=== PATIENT | male | born 1955 | race Caucasian/White ===

== ENCOUNTER 2018-02-13 19:55 | Inpatient (IN) | payer OTHER ==
[2018-02-13] MEDS ORDERED: HYDROCODONE/APAP (5/325) TAB PO (23:30)
[2018-02-13] MEDS ORDERED: ACETAMINOPHEN 325 MG TAB PO (23:30)
[2018-02-13] MEDS ORDERED: NACL 0.9% 3 ML SYG IV (23:30)
[2018-02-13] MEDS ORDERED: ONDANSETRON 4 MG INJ IV (23:30)
[2018-02-14 00:44] LABS: ADD MAN DIFF? NO
[2018-02-14 00:47] LABS: WHITE BLOOD COUNT 7.3 10^3/ul (4.8-10.8)
[2018-02-14 00:48] LABS: BASOPHILS % 0.4 % (0.0-2.0); EOSINOPHILS % 0.4 % (0.0-7.0); HEMATOCRIT 35.1 % (42.0-52.0); HEMOGLOBIN 12.3 g/dl (14.0-18.0); LYMPHOCYTES # 1.9 10^3/ul (0.8-2.9); LYMPHOCYTES % 25.5 % (15.0-51.0); MEAN CORPUSCULAR HEMOGLOBIN 28.9 pg (29.0-33.0); MEAN CORPUSCULAR VOLUME 82.6 fl (82.0-101.0); MEAN PLATELET VOLUME 11.2 fl (7.4-10.4); MONOCYTE # 0.8 10^3/ul (0.3-0.9); MONOCYTES % 10.3 % (0.0-11.0); NEUTROPHIL # 4.6 10^3/ul (1.6-7.5); PLATELET COUNT 253 10^3/UL (140-415); RED BLOOD COUNT 4.25 10^6/ul (4.70-6.10); RED CELL DISTRIBUTION WIDTH 15.4 % (11.5-14.5)
[2018-02-14 00:56] LABS: HEMOGLOBIN A1C 10.1 % (0-5.9)
[2018-02-14 01:06] LABS: ALANINE AMINOTRANSFERASE 94 IU/L (13-69); ALBUMIN 3.7 g/dl (3.3-4.9); ALBUMIN/GLOBULIN RATIO 1.23; ALKALINE PHOSPHATASE 249 IU/L (42-121); ANION GAP 14 (5-13); ASPARTATE AMINO TRANSFERASE 59 IU/L (15-46); BILIRUBIN,INDIRECT 1.7 mg/dl (0-1.1); BILIRUBIN,TOTAL 9.4 mg/dl (0.2-1.3); BLOOD UREA NITROGEN 12 mg/dl (7-20); CALCIUM 9.1 mg/dl (8.4-10.2); CARBON DIOXIDE 24 mmol/L (21-31); CHLORIDE 99 mmol/L (97-110); CREATININE 0.61 mg/dl (0.61-1.24); Estimated GFR > 60 mL/min (>60); GLUCOSE 246 mg/dl (70-220); SODIUM 137 mmol/L (135-144); TOTAL PROTEIN 6.7 g/dl (6.1-8.1)
[2018-02-14] MEDS ORDERED: GLUCAGON 1 MG INJ IM (02:30)
[2018-02-14] MEDS ORDERED: DEXTROSE 50% 50 ML SYRINGE IV ×2 (02:30)
[2018-02-14] MEDS ORDERED: GLUCOSE GEL 15 GRAM TUBE BUCCAL (02:30)
[2018-02-14] MEDS ORDERED: GLUCOSE GEL 15 GRAM TUBE PO ×2 (02:30)
[2018-02-14] MEDS: PANTOPRAZOLE (EC) 40 MG TAB PO (06:00)
[2018-02-14] MEDS ORDERED: SEVOFLURANE 15 MIN ×2 (07:00)
[2018-02-14] MEDS: DIPHENHYDRAMINE 50 MG INJ IV (07:01)
[2018-02-14] MEDS ORDERED: INSULIN ASPART [NOVOLOG] 3 ML PEN SC (08:00)
[2018-02-14] MEDS: DEXTROSE 5%-0.45% NACL 1,000 ML IV (08:42)
[2018-02-14] MEDS: BENAZEPRIL 10 MG TAB PO (08:45)
[2018-02-14] MEDS: INSULIN ASPART [NOVOLOG] 3 ML PEN SC ×7 (08:56→20:35)
[2018-02-14] MEDS ORDERED: LINAGLIPTIN 5 MG TABLET PO (09:00)
[2018-02-14] MEDS ORDERED: metFORMIN 850 MG TAB PO (09:00)
[2018-02-14 09:10] LABS: INR 0.98; PROTIME 13.1 Sec (11.9-14.9)
[2018-02-14 09:11] LABS: PARTIAL THROMBOPLASTIN TIME 25.7 Sec (23.0-35.0)
[2018-02-14] MEDS: URSODIOL 300 MG CAP PO ×3 (10:14→20:05)
[2018-02-14] MEDS: INDOMETHACIN 50 MG SUPP PR (15:40)
[2018-02-14] MEDS ORDERED: ROCURONIUM 50 MG INJ (16:22)
[2018-02-14] MEDS ORDERED: MIDAZOLAM 1 MG/ML 2 ML INJ (16:22)
[2018-02-14] MEDS ORDERED: FENTAnyl 50 MCG/ML VIAL (16:22)
[2018-02-14] MEDS ORDERED: CEFAZOLIN 1 GM INJ (16:22)
[2018-02-14] MEDS ORDERED: PROPOFOL 20 ML (16:22)
[2018-02-14] MEDS ORDERED: METOCLOPRAMIDE 10 MG INJ IV (16:30)
[2018-02-14] MEDS ORDERED: HYDROmorphONE 1 MG/5 ML IV SYRINGE IV ×3 (16:30)
[2018-02-14] MEDS ORDERED: ONDANSETRON 4 MG INJ IV (16:30)
[2018-02-14] MEDS ORDERED: hydrALAzine 20 MG INJ IV ×2 (16:30→21:00)
[2018-02-14] MEDS ORDERED: FENTAnyl 50 MCG/ML VIAL IV ×3 (16:30)
[2018-02-14] MEDS ORDERED: EPHEDrine SULFATE 50 MG/5 ML SYG IV (16:30)
[2018-02-14] MEDS ORDERED: LABETALOL HCL 20MG INJ IV (16:30)
[2018-02-14] MEDS ORDERED: PHENYLephrine (100 MCG/ML) 5ML SYG (16:44)
[2018-02-14] MEDS ORDERED: METOCLOPRAMIDE 10 MG INJ (17:02)
[2018-02-14] MEDS ORDERED: DEXAMETHASONE 4 MG/ML 1 ML INJ (17:02)
[2018-02-14] MEDS ORDERED: ONDANSETRON 4 MG INJ (17:02)
[2018-02-14] MEDS ORDERED: SUGAMMADEX SODIUM 200 MG/2 ML VIAL IV (18:06)
[2018-02-14 19:53] LABS: ALPHA FETOPROTEIN 2.64 IU/L (0.00-7.21)
[2018-02-14] MEDS: ATORVASTATIN 20 MG TAB PO (20:05)
[2018-02-14] MEDS: INSULIN GLARGINE [LANTus] (100 UNITS/ML) SYG SC (20:34)
[2018-02-15] MEDS ORDERED: ACCU-CHEK XX ×2 (02:00)
[2018-02-15] MEDS: INSULIN ASPART [NOVOLOG] 3 ML PEN SC ×7 (02:03→20:07)
[2018-02-15] MEDS: PANTOPRAZOLE (EC) 40 MG TAB PO (05:12)
[2018-02-15 06:58] LABS: ADD MAN DIFF? NO
[2018-02-15 07:00] LABS: WHITE BLOOD COUNT 6.9 10^3/ul (4.8-10.8)
[2018-02-15 07:00] LABS: BASOPHILS % 0.1 % (0.0-2.0); HEMATOCRIT 34.3 % (42.0-52.0); HEMOGLOBIN 12.2 g/dl (14.0-18.0); LYMPHOCYTES # 1.2 10^3/ul (0.8-2.9); LYMPHOCYTES % 17.9 % (15.0-51.0); MEAN CORPUSCULAR HEMOGLOBIN 28.9 pg (29.0-33.0); MEAN CORPUSCULAR HGB CONC 35.6 g/dl (32.0-37.0); MEAN CORPUSCULAR VOLUME 81.3 fl (82.0-101.0); MEAN PLATELET VOLUME 11.5 fl (7.4-10.4); MONOCYTE # 0.6 10^3/ul (0.3-0.9); MONOCYTES % 9.2 % (0.0-11.0); NEUTROPHILS % 72.4 % (39.0-77.0); PLATELET COUNT 285 10^3/UL (140-415); RED BLOOD COUNT 4.22 10^6/ul (4.70-6.10); RED CELL DISTRIBUTION WIDTH 15.6 % (11.5-14.5)
[2018-02-15 07:58] LABS: ALANINE AMINOTRANSFERASE 70 IU/L (13-69); ALBUMIN 3.4 g/dl (3.3-4.9); ALBUMIN/GLOBULIN RATIO 1.06; ALKALINE PHOSPHATASE 253 IU/L (42-121); ANION GAP 14 (5-13); ASPARTATE AMINO TRANSFERASE 45 IU/L (15-46); BILIRUBIN,INDIRECT 1.7 mg/dl (0-1.1); BILIRUBIN,TOTAL 10.6 mg/dl (0.2-1.3); BLOOD UREA NITROGEN 14 mg/dl (7-20); CALCIUM 9.2 mg/dl (8.4-10.2); CARBON DIOXIDE 25 mmol/L (21-31); CHLORIDE 102 mmol/L (97-110); CREATININE 0.65 mg/dl (0.61-1.24); Estimated GFR > 60 mL/min (>60); GLUCOSE 273 mg/dl (70-220); POTASSIUM 4.2 mmol/L (3.5-5.1); SODIUM 141 mmol/L (135-144); TOTAL PROTEIN 6.6 g/dl (6.1-8.1)
[2018-02-15] MEDS: URSODIOL 300 MG CAP PO ×3 (08:44→20:05)
[2018-02-15] MEDS: BENAZEPRIL 10 MG TAB PO (08:44)
[2018-02-15] MEDS: ATORVASTATIN 20 MG TAB PO (20:05)
[2018-02-15] MEDS: INSULIN GLARGINE [LANTus] (100 UNITS/ML) SYG SC (20:08)
[2018-02-16] MEDS: PANTOPRAZOLE (EC) 40 MG TAB PO (05:28)
[2018-02-16] MEDS: BENAZEPRIL 10 MG TAB PO (08:03)
[2018-02-16] MEDS: URSODIOL 300 MG CAP PO ×3 (08:04→20:52)
[2018-02-16] MEDS: INSULIN ASPART [NOVOLOG] 3 ML PEN SC ×7 (08:25→20:55)
[2018-02-16 11:46] LABS: ALANINE AMINOTRANSFERASE 60 IU/L (13-69); ALBUMIN 3.5 g/dl (3.3-4.9); ALBUMIN/GLOBULIN RATIO 0.97; ALKALINE PHOSPHATASE 276 IU/L (42-121); ANION GAP 10 (5-13); ASPARTATE AMINO TRANSFERASE 41 IU/L (15-46); BILIRUBIN,INDIRECT 1.5 mg/dl (0-1.1); BILIRUBIN,TOTAL 9.3 mg/dl (0.2-1.3); BLOOD UREA NITROGEN 13 mg/dl (7-20); CALCIUM 9.2 mg/dl (8.4-10.2); CARBON DIOXIDE 28 mmol/L (21-31); CHLORIDE 99 mmol/L (97-110); Estimated GFR > 60 mL/min (>60); GLUCOSE 291 mg/dl (70-220); POTASSIUM 4.2 mmol/L (3.5-5.1); SODIUM 137 mmol/L (135-144); TOTAL PROTEIN 7.1 g/dl (6.1-8.1)
[2018-02-16] MEDS: LINAGLIPTIN 5 MG TABLET PO (14:15)
[2018-02-16] MEDS: ATORVASTATIN 20 MG TAB PO (20:52)
[2018-02-16] MEDS: INSULIN GLARGINE [LANTus] (100 UNITS/ML) SYG SC (20:54)
[2018-02-16] MEDS: NEOMYC/POLYMYX/BACIT 30 GM OINT TOP (20:55)
[2018-02-17] MEDS: PANTOPRAZOLE (EC) 40 MG TAB PO (05:40)
[2018-02-17] MEDS: NEOMYC/POLYMYX/BACIT 30 GM OINT TOP ×2 (08:18→20:17)
[2018-02-17] MEDS: URSODIOL 300 MG CAP PO ×3 (08:18→20:17)
[2018-02-17] MEDS: LINAGLIPTIN 5 MG TABLET PO (08:18)
[2018-02-17] MEDS: BENAZEPRIL 10 MG TAB PO (08:19)
[2018-02-17] MEDS: INSULIN ASPART [NOVOLOG] 3 ML PEN SC ×7 (08:21→20:19)
[2018-02-17 15:28] LABS: ALANINE AMINOTRANSFERASE 52 IU/L (13-69); ALBUMIN 3.5 g/dl (3.3-4.9); ALBUMIN/GLOBULIN RATIO 0.92; ALKALINE PHOSPHATASE 274 IU/L (42-121); ANION GAP 11 (5-13); ASPARTATE AMINO TRANSFERASE 43 IU/L (15-46); BILIRUBIN,INDIRECT 1.3 mg/dl (0-1.1); BILIRUBIN,TOTAL 9.8 mg/dl (0.2-1.3); BLOOD UREA NITROGEN 13 mg/dl (7-20); CALCIUM 9.3 mg/dl (8.4-10.2); CARBON DIOXIDE 28 mmol/L (21-31); CHLORIDE 96 mmol/L (97-110); CREATININE 0.65 mg/dl (0.61-1.24); Estimated GFR > 60 mL/min (>60); GLUCOSE 247 mg/dl (70-220); SODIUM 135 mmol/L (135-144); TOTAL PROTEIN 7.3 g/dl (6.1-8.1)
[2018-02-17] MEDS: MAGNESIUM HYDROXIDE 30ML CUP PO (17:54)
[2018-02-17] MEDS: INSULIN GLARGINE [LANTus] (100 UNITS/ML) SYG SC (20:18)
[2018-02-18] MEDS: PANTOPRAZOLE (EC) 40 MG TAB PO (05:35)
[2018-02-18] MEDS: MAGNESIUM HYDROXIDE 30ML CUP PO (07:55)
[2018-02-18] MEDS: HYDROCODONE/APAP (5/325) TAB PO (07:56)
[2018-02-18] MEDS: URSODIOL 300 MG CAP PO ×2 (08:33→13:22)
[2018-02-18] MEDS: BENAZEPRIL 10 MG TAB PO (08:37)
[2018-02-18] MEDS: NEOMYC/POLYMYX/BACIT 30 GM OINT TOP (08:39)
[2018-02-18] MEDS: INSULIN ASPART [NOVOLOG] 3 ML PEN SC ×4 (08:54→12:43)
== END 2018-02-18 16:28 | disposition home or self-care (01) | DRG 435 ==
LOC: MS1 19:55 → 5EC 22:56
PROVIDERS: Hospitalist
PROC: 0F768DZ Dilation of Left Hepatic Duct with Intraluminal Device, Via Natural or Artificial Opening Endoscopic (ICD-10-PCS; principal; 2018-02-14 16:24)
PROC: 0FD98ZX Extraction of Common Bile Duct, Via Natural or Artificial Opening Endoscopic, Diagnostic (ICD-10-PCS; 2018-02-14 16:24)
PROC: 0F758DZ Dilation of Right Hepatic Duct with Intraluminal Device, Via Natural or Artificial Opening Endoscopic (ICD-10-PCS; 2018-02-14 16:24)
DX: C23 Malignant neoplasm of gallbladder (principal); K83.1 Obstruction of bile duct; I42.9 Cardiomyopathy, unspecified; I10 Essential (primary) hypertension; E11.9 Type 2 diabetes mellitus without complications; I25.10 Atherosclerotic heart disease of native coronary artery without angina pectoris; E78.5 Hyperlipidemia, unspecified; Z95.1 Presence of aortocoronary bypass graft
CPT/HCPCS: 71250; 74181; 74330; 80053; 82105; 82962; 83036; 85025; 85610; 85730; 86301; 88104; 88305; 93005; 93306; 97161

== ENCOUNTER 2018-04-07 18:07 | Inpatient (IN) | payer OTHER ==
[2018-04-07] MEDS: SOD CHLORIDE 0.9% 1,000 ML IV (18:55)
[2018-04-07] MEDS ORDERED: NACL 0.9% 3 ML SYG IV (19:00)
[2018-04-07] MEDS ORDERED: ONDANSETRON 4 MG INJ IV (19:00)
[2018-04-07] MEDS ORDERED: HYDROCODONE/APAP (5/325) TAB PO (19:00)
[2018-04-07] MEDS ORDERED: GLUCAGON 1 MG INJ IM (19:30)
[2018-04-07] MEDS ORDERED: GLUCOSE GEL 15 GRAM TUBE BUCCAL (19:30)
[2018-04-07] MEDS ORDERED: DEXTROSE 50% 50 ML SYRINGE IV ×2 (19:30)
[2018-04-07] MEDS ORDERED: GLUCOSE GEL 15 GRAM TUBE PO ×2 (19:30)
[2018-04-07] MEDS: HEPARIN 5,000 UNIT/1 ML VIAL SC (20:46)
[2018-04-07] MEDS: INSULIN ASPART [NOVOLOG] 3 ML PEN SC (21:00)
[2018-04-08] MEDS: PIPER-TAZO 3.375 GM IV (PMX) 100 ML IVPB ×4 (00:30→17:38)
[2018-04-08 00:49] LABS: ADD MAN DIFF? NO
[2018-04-08 00:50] LABS: WHITE BLOOD COUNT 4.9 10^3/ul (4.8-10.8)
[2018-04-08 00:50] LABS: ABNORMAL IP MESSAGE 1; BASOPHILS % 0.4 % (0.0-2.0); EOSINOPHILS % 0.2 % (0.0-7.0); HEMATOCRIT 28.8 % (42.0-52.0); HEMOGLOBIN 9.6 g/dl (14.0-18.0); LYMPHOCYTES # 0.5 10^3/ul (0.8-2.9); MEAN CORPUSCULAR HEMOGLOBIN 29.7 pg (29.0-33.0); MEAN CORPUSCULAR HGB CONC 33.3 g/dl (32.0-37.0); MEAN CORPUSCULAR VOLUME 89.2 fl (82.0-101.0); MEAN PLATELET VOLUME 9.4 fl (7.4-10.4); MONOCYTE # 0.5 10^3/ul (0.3-0.9); MONOCYTES % 9.4 % (0.0-11.0); NEUTROPHIL # 3.9 10^3/ul (1.6-7.5); NEUTROPHILS % 78.6 % (39.0-77.0); PLATELET COUNT 311 10^3/UL (140-415); POSITIVE DIFF @See below; RED BLOOD COUNT 3.23 10^6/ul (4.70-6.10); RED CELL DISTRIBUTION WIDTH 16.4 % (11.5-14.5)
[2018-04-08] MEDS: INSULIN ASPART [NOVOLOG] 3 ML PEN SC ×6 (01:00→21:00)
[2018-04-08 01:07] LABS: ALANINE AMINOTRANSFERASE 22 IU/L (13-69); ALBUMIN 3.1 g/dl (3.3-4.9); ALKALINE PHOSPHATASE 103 IU/L (42-121); ANION GAP 9 (5-13); ASPARTATE AMINO TRANSFERASE 37 IU/L (15-46); BILIRUBIN,INDIRECT 0.6 mg/dl (0-1.1); BILIRUBIN,TOTAL 0.6 mg/dl (0.2-1.3); BLOOD UREA NITROGEN 9 mg/dl (7-20); CALCIUM 8.6 mg/dl (8.4-10.2); CARBON DIOXIDE 24 mmol/L (21-31); CHLORIDE 102 mmol/L (97-110); CREATININE 0.61 mg/dl (0.61-1.24); Estimated GFR > 60 mL/min (>60); GLUCOSE 109 mg/dl (70-220); POTASSIUM 3.5 mmol/L (3.5-5.1); SODIUM 135 mmol/L (135-144); TOTAL PROTEIN 6.2 g/dl (6.1-8.1)
[2018-04-08] MEDS: ACCU-CHEK XX (01:42)
[2018-04-08] MEDS: SOD CHLORIDE 0.9% 1,000 ML IV ×4 (04:55→19:50)
[2018-04-08 06:17] LABS: HEMATOCRIT 27.7 % (42.0-52.0); HEMOGLOBIN 9.1 g/dl (14.0-18.0); MEAN CORPUSCULAR HEMOGLOBIN 29.5 pg (29.0-33.0); MEAN CORPUSCULAR HGB CONC 32.9 g/dl (32.0-37.0); MEAN CORPUSCULAR VOLUME 89.9 fl (82.0-101.0); MEAN PLATELET VOLUME 9.8 fl (7.4-10.4); PLATELET COUNT 302 10^3/UL (140-415); POSITIVE DIFF @See below; RED BLOOD COUNT 3.08 10^6/ul (4.70-6.10); RED CELL DISTRIBUTION WIDTH 16.4 % (11.5-14.5)
[2018-04-08 06:17] LABS: WHITE BLOOD COUNT 5.1 10^3/ul (4.8-10.8)
[2018-04-08 06:33] LABS: ADD MAN DIFF? YES
[2018-04-08 06:40] LABS: ANION GAP 7 (5-13); BLOOD UREA NITROGEN 9 mg/dl (7-20); CALCIUM 8.6 mg/dl (8.4-10.2); CARBON DIOXIDE 26 mmol/L (21-31); CHLORIDE 104 mmol/L (97-110); CREATININE 0.64 mg/dl (0.61-1.24); Estimated GFR > 60 mL/min (>60); GLUCOSE 120 mg/dl (70-220); MAGNESIUM 1.8 mg/dl (1.7-2.5); PHOSPHORUS 4.2 mg/dl (2.5-4.9); POTASSIUM 3.6 mmol/L (3.5-5.1); SODIUM 137 mmol/L (135-144)
[2018-04-08] MEDS: HEPARIN 5,000 UNIT/1 ML VIAL SC ×2 (08:26→22:01)
[2018-04-08 10:55] LABS: ANISOCYTOSIS 2+ (0-0); BAND NEUTROPHILS #M 0.4 10^3/ul (0.0-0.6); BAND NEUTROPHILS % (M) 8 % (0-4); BURR CELLS 1+ (0-0); EOSINOPHILS % (M) 2 % (0-7); ERYTHROBLAST% (NRBC) (M) 1 % (0-0); GIANT THROMBO% (M) 1 % (0-0); LYMPHOCYTES #M 1.1 10^3/ul (0.8-2.9); LYMPHOCYTES % (M) 22 % (15-51); MICROCYTOSIS 2+ (0-0); MONOCYTE #M 0.4 10^3/ul (0.3-0.9); MONOCYTES % (M) 9 % (0-11); PLATELET ESTIMATE NORMAL; POIKILOCYTOSIS 1+ (0-0); POLYCHROMASIA 3+ (0-0); SEGMENTED NEUTROPHILS (M) % 59 % (39-77); SMUDGE%M 2 % (0-0)
[2018-04-08] MEDS ORDERED: BARIUM SULF 2% 450 ML BTL (BERRY SMOOTHIE) PO (15:30)
[2018-04-08] MEDS: IOHEXOL 14.3 MG(I)/ML (ADULT) BTL PO (19:51)
[2018-04-09] MEDS: PIPER-TAZO 3.375 GM IV (PMX) 100 ML IVPB ×5 (00:19→23:40)
[2018-04-09] MEDS: SOD CHLORIDE 0.9% 1,000 ML IV ×5 (00:55→20:55)
[2018-04-09] MEDS: INSULIN ASPART [NOVOLOG] 3 ML PEN SC ×6 (01:00→21:00)
[2018-04-09] MEDS: ACCU-CHEK XX (01:48)
[2018-04-09 06:10] LABS: ADD MAN DIFF? NO
[2018-04-09 06:15] LABS: BASOPHILS % 0.5 % (0.0-2.0); EOSINOPHILS % 0.7 % (0.0-7.0); HEMATOCRIT 27.2 % (42.0-52.0); HEMOGLOBIN 9.1 g/dl (14.0-18.0); LYMPHOCYTES # 1.3 10^3/ul (0.8-2.9); LYMPHOCYTES % 22.6 % (15.0-51.0); MEAN CORPUSCULAR HEMOGLOBIN 29.8 pg (29.0-33.0); MEAN CORPUSCULAR HGB CONC 33.5 g/dl (32.0-37.0); MEAN CORPUSCULAR VOLUME 89.2 fl (82.0-101.0); MEAN PLATELET VOLUME 9.3 fl (7.4-10.4); MONOCYTE # 0.9 10^3/ul (0.3-0.9); MONOCYTES % 16.5 % (0.0-11.0); NEUTROPHIL # 3.3 10^3/ul (1.6-7.5); NEUTROPHILS % 59.3 % (39.0-77.0); PLATELET COUNT 319 10^3/UL (140-415); RED BLOOD COUNT 3.05 10^6/ul (4.70-6.10); RED CELL DISTRIBUTION WIDTH 15.7 % (11.5-14.5)
[2018-04-09 06:15] LABS: WHITE BLOOD COUNT 5.6 10^3/ul (4.8-10.8)
[2018-04-09 07:38] LABS: ALANINE AMINOTRANSFERASE 22 IU/L (13-69); ALBUMIN 2.8 g/dl (3.3-4.9); ALKALINE PHOSPHATASE 83 IU/L (42-121); ANION GAP 9 (5-13); ASPARTATE AMINO TRANSFERASE 32 IU/L (15-46); BILIRUBIN,INDIRECT 0.3 mg/dl (0-1.1); BILIRUBIN,TOTAL 0.3 mg/dl (0.2-1.3); BLOOD UREA NITROGEN 9 mg/dl (7-20); CALCIUM 8.3 mg/dl (8.4-10.2); CARBON DIOXIDE 22 mmol/L (21-31); CHLORIDE 106 mmol/L (97-110); CREATININE 0.58 mg/dl (0.61-1.24); Estimated GFR > 60 mL/min (>60); GLUCOSE 81 mg/dl (70-220); POTASSIUM 3.4 mmol/L (3.5-5.1); SODIUM 137 mmol/L (135-144); TOTAL PROTEIN 5.6 g/dl (6.1-8.1)
[2018-04-09] MEDS: HEPARIN 5,000 UNIT/1 ML VIAL SC ×2 (09:00→21:37)
[2018-04-09] MEDS: BISACODYL 10 MG SUPP PR ×2 (13:08→22:16)
[2018-04-10] MEDS: INSULIN ASPART [NOVOLOG] 3 ML PEN SC ×6 (01:00→21:00)
[2018-04-10] MEDS: ACCU-CHEK XX (01:55)
[2018-04-10] MEDS: SOD CHLORIDE 0.9% 1,000 ML IV ×3 (04:10→19:28)
[2018-04-10] MEDS: PIPER-TAZO 3.375 GM IV (PMX) 100 ML IVPB ×3 (05:30→19:33)
[2018-04-10 06:28] LABS: ADD MAN DIFF? NO
[2018-04-10 06:44] LABS: WHITE BLOOD COUNT 5.5 10^3/ul (4.8-10.8)
[2018-04-10 06:44] LABS: BASOPHILS % 0.4 % (0.0-2.0); EOSINOPHILS % 0.4 % (0.0-7.0); HEMATOCRIT 28.7 % (42.0-52.0); HEMOGLOBIN 9.5 g/dl (14.0-18.0); LYMPHOCYTES # 1.4 10^3/ul (0.8-2.9); LYMPHOCYTES % 25.1 % (15.0-51.0); MEAN CORPUSCULAR HEMOGLOBIN 29.7 pg (29.0-33.0); MEAN CORPUSCULAR HGB CONC 33.1 g/dl (32.0-37.0); MEAN CORPUSCULAR VOLUME 89.7 fl (82.0-101.0); MEAN PLATELET VOLUME 9.7 fl (7.4-10.4); MONOCYTE # 0.8 10^3/ul (0.3-0.9); MONOCYTES % 14.7 % (0.0-11.0); NEUTROPHIL # 3.2 10^3/ul (1.6-7.5); NEUTROPHILS % 58.8 % (39.0-77.0); PLATELET COUNT 371 10^3/UL (140-415); RED CELL DISTRIBUTION WIDTH 15.5 % (11.5-14.5)
[2018-04-10 06:56] LABS: INR 1.01; PARTIAL THROMBOPLASTIN TIME 33.1 Sec (23.0-35.0); PROTIME 13.4 Sec (11.9-14.9)
[2018-04-10 07:14] LABS: ALANINE AMINOTRANSFERASE 19 IU/L (13-69); ALBUMIN 2.9 g/dl (3.3-4.9); ALBUMIN/GLOBULIN RATIO 1.03; ALKALINE PHOSPHATASE 85 IU/L (42-121); ANION GAP 9 (5-13); ASPARTATE AMINO TRANSFERASE 26 IU/L (15-46); BILIRUBIN,INDIRECT 0.3 mg/dl (0-1.1); BILIRUBIN,TOTAL 0.3 mg/dl (0.2-1.3); BLOOD UREA NITROGEN 7 mg/dl (7-20); CALCIUM 8.7 mg/dl (8.4-10.2); CARBON DIOXIDE 25 mmol/L (21-31); CHLORIDE 105 mmol/L (97-110); CREATININE 0.58 mg/dl (0.61-1.24); Estimated GFR > 60 mL/min (>60); GLUCOSE 84 mg/dl (70-220); POTASSIUM 3.4 mmol/L (3.5-5.1); SODIUM 139 mmol/L (135-144); TOTAL PROTEIN 5.7 g/dl (6.1-8.1)
[2018-04-10] MEDS: HEPARIN 5,000 UNIT/1 ML VIAL SC ×2 (09:00→20:30)
[2018-04-10] MEDS: POTASSIUM CHLORIDE 100 ML IVPB ×2 (11:12→15:11)
[2018-04-10] MEDS ORDERED: LIDOCAINE 4% SOLUTION 50 ML BTL (11:58)
[2018-04-10] MEDS ORDERED: ONDANSETRON 4 MG INJ IV (12:30)
[2018-04-10] MEDS ORDERED: PROPOFOL 20 ML (12:33)
[2018-04-10] MEDS ORDERED: METOCLOPRAMIDE 10 MG INJ (12:57)
[2018-04-10] MEDS: ACETAMINOPHEN 325 MG TAB PO (14:40)
[2018-04-10] MEDS: METOCLOPRAMIDE 10 MG INJ IV ×2 (14:41→18:00)
[2018-04-11] MEDS: METOCLOPRAMIDE 10 MG INJ IV ×4 (00:02→18:20)
[2018-04-11] MEDS: PIPER-TAZO 3.375 GM IV (PMX) 100 ML IVPB ×4 (00:02→18:19)
[2018-04-11] MEDS: ACCU-CHEK XX (02:00)
[2018-04-11 05:00] LABS: ADD MAN DIFF? NO
[2018-04-11 05:07] LABS: BASOPHILS % 0.4 % (0.0-2.0); EOSINOPHILS # 0.1 10^3/ul (0.0-0.5); HEMATOCRIT 28.3 % (42.0-52.0); HEMOGLOBIN 9.6 g/dl (14.0-18.0); LYMPHOCYTES # 1.4 10^3/ul (0.8-2.9); LYMPHOCYTES % 26.8 % (15.0-51.0); MEAN CORPUSCULAR HEMOGLOBIN 29.7 pg (29.0-33.0); MEAN CORPUSCULAR HGB CONC 33.9 g/dl (32.0-37.0); MEAN CORPUSCULAR VOLUME 87.6 fl (82.0-101.0); MEAN PLATELET VOLUME 9.1 fl (7.4-10.4); MONOCYTE # 0.7 10^3/ul (0.3-0.9); MONOCYTES % 14.1 % (0.0-11.0); NEUTROPHIL # 2.9 10^3/ul (1.6-7.5); NEUTROPHILS % 56.9 % (39.0-77.0); PLATELET COUNT 340 10^3/UL (140-415); RED BLOOD COUNT 3.23 10^6/ul (4.70-6.10); RED CELL DISTRIBUTION WIDTH 15.2 % (11.5-14.5)
[2018-04-11 05:30] LABS: ALANINE AMINOTRANSFERASE 26 IU/L (13-69); ALBUMIN 2.7 g/dl (3.3-4.9); ALKALINE PHOSPHATASE 221 IU/L (42-121); ANION GAP 12 (5-13); ASPARTATE AMINO TRANSFERASE 58 IU/L (15-46); BILIRUBIN,INDIRECT 0.2 mg/dl (0-1.1); BILIRUBIN,TOTAL 0.2 mg/dl (0.2-1.3); BLOOD UREA NITROGEN 4 mg/dl (7-20); CALCIUM 8.5 mg/dl (8.4-10.2); CARBON DIOXIDE 24 mmol/L (21-31); CHLORIDE 104 mmol/L (97-110); CREATININE 0.53 mg/dl (0.61-1.24); Estimated GFR > 60 mL/min (>60); GLUCOSE 140 mg/dl (70-220); POTASSIUM 3.5 mmol/L (3.5-5.1); SODIUM 140 mmol/L (135-144); TOTAL PROTEIN 5.7 g/dl (6.1-8.1)
[2018-04-11] MEDS: SOD CHLORIDE 0.9% 1,000 ML IV ×3 (07:15→21:09)
[2018-04-11] MEDS: INSULIN ASPART [NOVOLOG] 3 ML PEN SC ×4 (08:46→21:00)
[2018-04-11] MEDS: HEPARIN 5,000 UNIT/1 ML VIAL SC ×2 (08:46→21:06)
[2018-04-11] MEDS ORDERED: BARIUM SULFATE 135 ML (E-Z HD) PO (15:00)
[2018-04-11] MEDS: ZOLPIDEM 5 MG TAB PO (21:03)
[2018-04-12] MEDS: PIPER-TAZO 3.375 GM IV (PMX) 100 ML IVPB ×5 (00:10→23:42)
[2018-04-12] MEDS: METOCLOPRAMIDE 10 MG INJ IV ×5 (00:10→23:42)
[2018-04-12] MEDS: ZOLPIDEM 5 MG TAB PO ×2 (00:15→21:25)
[2018-04-12] MEDS: ACCU-CHEK XX ×2 (02:00→20:34)
[2018-04-12] MEDS: morphine 2 MG INJ IV (08:05)
[2018-04-12] MEDS: INSULIN ASPART [NOVOLOG] 3 ML PEN SC ×4 (08:10→20:33)
[2018-04-12] MEDS: HEPARIN 5,000 UNIT/1 ML VIAL SC ×2 (08:10→20:33)
[2018-04-12] MEDS: SOD CHLORIDE 0.9% 1,000 ML IV ×2 (12:44→18:55)
[2018-04-12] MEDS ORDERED: morphine LIQ (10 MG/5 ML) CUP PO (18:00)
[2018-04-13] MEDS: SOD CHLORIDE 0.9% 1,000 ML IV ×2 (03:42→04:55)
[2018-04-13] MEDS: METOCLOPRAMIDE 10 MG INJ IV ×2 (05:16→12:27)
[2018-04-13] MEDS: PIPER-TAZO 3.375 GM IV (PMX) 100 ML IVPB ×2 (05:16→12:27)
[2018-04-13] MEDS: HEPARIN 5,000 UNIT/1 ML VIAL SC (08:15)
[2018-04-13] MEDS: INSULIN ASPART [NOVOLOG] 3 ML PEN SC ×2 (08:15→12:24)
[2018-04-13] MEDS: LEVOFLOXACIN 750MG/D5W (PMX) 150 ML IVPB (14:50)
[2018-04-14] MEDS ORDERED: LEVOFLOXACIN 500 MG TAB PO (06:00)
== END 2018-04-13 17:00 | disposition home or self-care (01) | DRG 872 ==
LOC: 2NE 04-08 06:18
PROVIDERS: Internal Medicine
PROC: 0DJ08ZZ Inspection of Upper Intestinal Tract, Via Natural or Artificial Opening Endoscopic (ICD-10-PCS; principal; 2018-04-10 12:00)
DX: A41.59 Other Gram-negative sepsis (principal); K31.1 Adult hypertrophic pyloric stenosis; C22.1 Intrahepatic bile duct carcinoma; C78.7 Secondary malignant neoplasm of liver and intrahepatic bile duct; I25.10 Atherosclerotic heart disease of native coronary artery without angina pectoris; E78.5 Hyperlipidemia, unspecified; I10 Essential (primary) hypertension; K20.9 Esophagitis, unspecified; K29.30 Chronic superficial gastritis without bleeding; E11.43 Type 2 diabetes mellitus with diabetic autonomic (poly)neuropathy; K31.84 Gastroparesis; Z95.1 Presence of aortocoronary bypass graft
CPT/HCPCS: 74018; 74176; 74240; 78264; 80048; 80053; 82962; 83735; 84100; 85025; 85610; 85730; 87040